=== PATIENT | female | born 1945 | race Caucasian/White ===

== ENCOUNTER 2016-10-27 19:40 | Emergency (ER) | payer OTHER ==
[2016-10-27 20:04] VITALS: BP 149/72; PULSE 86; TEMP 99; BMI 27.3
[2016-10-27] MEDS ORDERED: SILVER SULFADIAZINE 1% TOP CREAM 50 GM JAR TP ONE ×2 (20:34→20:36)
--- NOTE | 2016-10-27 20:50 | PDOC ---
History of Present Illness - General Chief Complaint: Burn Stated Complaint: BURN Time Seen by Provider: 10/27/16 20:34 History Source: Patient Exam Limitations: No Limitations - History of Present Illness Initial Comments: 10/27/16 20:45 Patient came to emergency department with complaints of persistent pain to her left lower extremity. 8 days ago was cooking and spilled hot cooking oil on to left leg extending from mid thigh down to ankle. States washed and has been using aloe vera for treatment but pain has persisted. He shouldn't now here with partial possible full-thickness burn to her left lateral calf with pain. Denies numbness or tingling to foot, denies fever, is ambulatory but pain with walking. States blood sugars have been her norm 100 -150 Occurred: reports: last week Severity: reports: moderate, severe Pain Location: reports: lower extremity Modifying Factors: improves with: None Past History - Travel Traveled outside of the country in the last 30 days: No Close contact w/someone who was outside of country & ill: No - Past Medical History Allergies/Adverse Reactions: Allergies Allergy/AdvReac Type Severity Reaction Status Date / Time No Known Allergies Allergy Verified 10/27/16 20:01 Home Medications: Ambulatory Orders Losartan Potassium 50 mg PO DAILY 07/19/15 Metoprolol Tartrate 25 mg PO BID 07/19/15 Nifedipine [Nifedical Xl] 30 mg PO DAILY 07/19/15 Sitagliptin Phos/Metformin HCl [Janumet 50-1,000 mg Tablet] 1 each PO BID Ibuprofen 600 mg PO PRN 10/27/16 Anemia: Yes Cardiac Disorders: Yes (CORONARY ATERIOSCLEROSIS) Diabetes: Yes HTN: Yes Hypercholesterolemia: Yes Suicide Attempt (Hx): No - Surgical History Orthopedic Surgery: Yes (KNEE SX,ELBOW SX) - Immunization History Immunization Up to Date: Yes - Psycho/Social/Smoking Cessation Hx Anxiety: No Suicidal Ideation: No Smoking History: Never smoked Have you smoked in the past 12 months: No Information on smoking cessation initiated: No Hx Alcohol Use: No Drug/Substance Use Hx: No Substance Use Type: None Review of Systems - Review of Systems Able to Perform ROS?: Yes Is the patient limited Divehi proficient: Yes Constitutional: Yes: Symptoms Reported, See HPI. No: Fever, Loss of Appetite, Malaise HEENTM: No: Symptoms Reported Musculoskeletal: Yes: Symptoms Reported, See HPI Integumentary: Yes: Symptoms Reported, See HPI, Erythema Neurological: Yes: Symptoms reported All Other Systems: Reviewed and Negative *Physical Exam - Vital Signs Last Vital Signs Temp Pulse Resp BP Pulse Ox 99.0 F 86 20 149/72 98 10/27/16 20:01 10/27/16 20:01 10/27/16 20:01 10/27/16 20:01 10/27/16 20:01 - Physical Exam General Appearance: Yes: Nourished, Appropriately Dressed, Apparent Distress, Mild Distress HEENT: positive: VERÓNICA, Normal ENT Inspection, TMs Normal, Pharynx Normal Extremity: positive: Normal Capillary Refill (full thickness partial deep burn with peeling to area approximately 15 cm x 10 cm to lateral aspect of left lower extremity between knee and ankle. Has some erythema noted extending distally to ankle joint. Has 3 lesions that skin has denuded but blanches. Persistent pain to the area.), Normal Range of Motion, Tender. 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 Tetanus is up-to-date, wound was cleaned and Silvadene cream applied with instructions for its continued use. Instructed to continue using ibuprofen for pain and antiprostaglandin . Patient understands to return to emergency department for worsened pain, swelling, or evidence of infection. *DC/Admit/Observation/Transfer Diagnosis at time of Disposition: Partial thickness burn of lower extremity Qualifiers: Encounter type: initial encounter Laterality: left Qualified Code(s): T24.202A - Burn of second degree of unspecified site of left lower limb, except ankle and foot, initial encounter - Discharge Dispostion Disposition: HOME Condition at time of disposition: Stable Admit: No - Patient Instructions Printed Discharge Instructions: How to Take Care of a Burn, DI for [place]azo Additional Instructions: Rest, elevate area if possible Lots of fluids to keep well hydrated Keep area clean and reapply antimicrobial/bacitracin/Silvadene cream lightly, as directed and cover with Telfa dressings/nonstick dressings as directed twice a day until wound healed Ibuprofen for pain relief, anti-inflammatory and antiprostaglandin effects See private physician in one to 2 days for wound check as needed Return to emergency department for worsening swelling, pain, evidence of infection
== END 2016-10-27 20:59 | disposition home or self-care (01) ==
LOC: JERFT 19:40
PROC: 2W2MX4Z Dressing of Left Lower Extremity using Bandage (ICD-10-PCS; principal; 2016-10-27)
DX: T24.202A Burn of second degree of unspecified site of left lower limb, except ankle and foot, initial encounter (principal); X10.2XXA Contact with fats and cooking oils, initial encounter; Y93.G3 Activity, cooking and baking; Y92.030 Kitchen in apartment as the place of occurrence of the external cause
CPT/HCPCS: 99281-25

== ENCOUNTER 2017-11-15 18:48 | Emergency (ER) | payer OTHER ==
[2017-11-15 19:42] VITALS: BP 155/74; PULSE 72; TEMP 98.5; BMI 29.1
--- NOTE | 2017-11-15 19:42 | PDOC ---
Rapid Medical Evaluation Time Seen by Provider: 11/15/17 19:39 Medical Evaluation: Allergies Allergy/AdvReac Type Severity Reaction Status Date / Time No Known Allergies Allergy Verified 10/27/16 20:01 11/15/17 19:40 I have performed a brief in-person evaluation of this patient. The patient presents with a chief complaint of: left ankle pain s/p slip and fall at home. patient did not hit head with fall. no LOC or dizziness Pertinent physical exam findings:moderate pain over medial and lateral side of left ankle I have ordered the following: left ankle x-rays The patient will proceed to the ED for further evaluation. Discharge Disposition - Diagnosis Left ankle pain Qualifiers: Chronicity: acute Qualified Code(s): M25.572 - Pain in left ankle and joints of left foot - Referrals Referrals: Jerilyn Rodriguez MD [Primary Care Provider] - - Patient Instructions - Post Discharge Activity
--- NOTE | 2017-11-15 20:13 | PDOC ---
History of Present Illness - General Chief Complaint: Injury Stated Complaint: FALL/ LEG PAIN Time Seen by Provider: 11/15/17 19:39 - History of Present Illness Initial Comments: 71-year-old female presents for evaluation of left ankle pain after a fall today at home. She points to the medial lateral aspect of the left ankle is ear discomfort. She did have a prior ankle surgery in the past and her country. She has a history of hypertension and diabetes 11/15/17 20:10 Past History - Past Medical History Allergies/Adverse Reactions: Allergies Allergy/AdvReac Type Severity Reaction Status Date / Time No Known Allergies Allergy Verified 11/15/17 19:42 Home Medications: Ambulatory Orders Losartan Potassium 50 mg PO DAILY 07/19/15 Metoprolol Tartrate 25 mg PO BID 07/19/15 Nifedipine [Nifedical Xl] 30 mg PO DAILY 07/19/15 Sitagliptin Phos/Metformin HCl [Janumet 50-1,000 mg Tablet] 1 each PO BID Anemia: Yes Cardiac Disorders: Yes (CORONARY ATERIOSCLEROSIS) Diabetes: Yes HTN: Yes Hypercholesterolemia: Yes - Surgical History Orthopedic Surgery: Yes (KNEE SX,ELBOW SX) - Immunization History Immunization Up to Date: Yes - Suicide/Smoking/Psychosocial Hx Smoking History: Never smoked Have you smoked in the past 12 months: No Information on smoking cessation initiated: No Hx Alcohol Use: No Drug/Substance Use Hx: No Substance Use Type: None Review of Systems - Review of Systems Musculoskeletal: Yes: See HPI, Joint Pain All Other Systems: Reviewed and Negative *Physical Exam - Vital Signs Last Vital Signs Temp Pulse Resp BP Pulse Ox 98.5 F 72 16 155/74 100 11/15/17 19:40 11/15/17 19:40 11/15/17 19:40 11/15/17 19:40 11/15/17 19:40 - Physical Exam Comments: 11/15/17 20:11 Left ankle skin color and temperature are normal. There is well-healed incisions about the medial and lateral aspect of the ankle. Slightly decreased range of motion mild tenderness over the medial lateral malleolus. No instability no gross sensorimotor deficits. She is neurovascularly intact. Medical Decision Making - Medical Decision Making 11/15/17 20:11 X-rays of the left ankle show a screw in the medial malleolus and to the lateral malleolus for prior fracture fixation *DC/Admit/Observation/Transfer Diagnosis at time of Disposition: Ankle sprain Left ankle pain Qualifiers: Chronicity: acute Qualified Code(s): M25.572 - Pain in left ankle and joints of left foot - Discharge Dispostion Disposition: HOME Condition at time of disposition: Stable Decision to Admit order: No - Referrals Referrals: Jerilyn Rodriguez MD [Primary Care Provider] - Yazan Rivera MD [Staff Physician] - - Patient Instructions Printed Discharge Instructions: Ankle Sprain, DI for Ankle Sprain Additional Instructions: He may take Tylenol for pain. Return to the emergency room should symptoms worsen or go unresolved. Please follow-up with orthopedic surgery in 1-2 days for further evaluation and treatment options. He may weight-bear as tolerated with use the Aircast and crutches. You may remove the Aircast for hygiene and sleep. - Post Discharge Activity
== END 2017-11-15 20:28 | disposition home or self-care (01) ==
LOC: JERFT 18:48
PROC: 2W3RX1Z Immobilization of Left Lower Leg using Splint (ICD-10-PCS; principal; 2017-11-15)
DX: S93.402A Sprain of unspecified ligament of left ankle, initial encounter (principal); W01.0XXA Fall on same level from slipping, tripping and stumbling without subsequent striking against object, initial encounter; Y93.89 Activity, other specified; Y92.038 Other place in apartment as the place of occurrence of the external cause; Y99.8 Other external cause status; I25.10 Atherosclerotic heart disease of native coronary artery without angina pectoris; I10 Essential (primary) hypertension; E78.00 Pure hypercholesterolemia, unspecified; E11.9 Type 2 diabetes mellitus without complications; Z79.84 Long term (current) use of oral hypoglycemic drugs; D64.9 Anemia, unspecified
CPT/HCPCS: 73610-TC-LT-FY; 73630-TC-LT; 99281-25

== ENCOUNTER 2020-04-22 15:20 | Emergency (ER) | payer OTHER ==
[2020-04-22 15:29] VITALS: BP 161/79; PULSE 90; TEMP 97.5; BMI 27.1
== END 2020-04-22 16:57 | disposition home or self-care (01) ==
LOC: JERFT 15:20
DX: S42.292A Other displaced fracture of upper end of left humerus, initial encounter for closed fracture (principal)
CPT/HCPCS: 73030-TC-LT-FY; 99284-25